=== PATIENT | female | born 1980 | race African-American/Black ===

== ENCOUNTER 2017-02-27 14:00 | Emergency (ER) | payer OTHER ==
[2017-02-27 17:33] LABS: URINE PH (Dip) POC 5.5 (5.0-8.5)
[2017-02-27 17:33] LABS: URINE BLOOD (Dip) POC Trace-lysed (NEGATIVE); URINE GLUCOSE (Dip) POC Negative (NEGATIVE); URINE KETONES (Dip) POC Negative (NEGATIVE); URINE LEUKOCYTE EST (Dip) POC Negative (NEGATIVE); URINE NITRITE (Dip) POC Negative (NEGATIVE); URINE TOTAL PROTEIN POC Negative (NEGATIVE)
== END 2017-02-27 18:30 | disposition home or self-care (01) ==
LOC: FTE 14:00
DX: O99.89 Other specified diseases and conditions complicating pregnancy, childbirth and the puerperium (principal); R05 Cough; Z3A.01 Less than 8 weeks gestation of pregnancy
CPT/HCPCS: 76801; 76817; 81003; 99284-25

== ENCOUNTER 2017-03-01 22:07 | Emergency (ER) | payer OTHER ==
[2017-03-02 00:46] LABS: URINE PH (Dip) POC 6.5 (5.0-8.5)
[2017-03-02 00:46] LABS: URINE BLOOD (Dip) POC Trace-intact (NEGATIVE); URINE GLUCOSE (Dip) POC Negative (NEGATIVE); URINE KETONES (Dip) POC Negative (NEGATIVE); URINE LEUKOCYTE EST (Dip) POC Negative (NEGATIVE); URINE NITRITE (Dip) POC Negative (NEGATIVE); URINE TOTAL PROTEIN POC Trace (NEGATIVE)
[2017-03-02] MEDS: ACETAMINOPHEN 325 MG TAB PO (00:48)
[2017-03-02 01:00] LABS: ADD MAN DIFF? NO
[2017-03-02 01:03] LABS: BASOPHILS % 0.4 % (0.0-2.0); EOSINOPHILS # 0.2 10^3/ul (0.0-0.5); EOSINOPHILS % 1.9 % (0.0-7.0); HEMATOCRIT 32.7 % (37.0-47.0); LYMPHOCYTES # 2.4 10^3/ul (0.8-2.9); LYMPHOCYTES % 23.8 % (15.0-51.0); MEAN CORPUSCULAR HEMOGLOBIN 30.9 pg (29.0-33.0); MEAN CORPUSCULAR HGB CONC 33.6 g/dl (32.0-37.0); MEAN CORPUSCULAR VOLUME 91.9 fl (82.0-101.0); MONOCYTE # 0.8 10^3/ul (0.3-0.9); MONOCYTES % 7.8 % (0.0-11.0); NEUTROPHIL # 6.7 10^3/ul (1.6-7.5); NEUTROPHILS % 65.7 % (39.0-77.0); PLATELET COUNT 259 10^3/UL (140-415); RED BLOOD COUNT 3.56 10^6/ul (4.20-5.40); RED CELL DISTRIBUTION WIDTH 12.4 % (11.5-14.5)
[2017-03-02 01:03] LABS: WHITE BLOOD COUNT 10.1 10^3/ul (4.8-10.8)
[2017-03-02 01:15] LABS: ADD UMIC NO; UR ASCORBIC ACID NEGATIVE (NEGATIVE); UR BILIRUBIN (Dip) NEGATIVE (NEGATIVE); UR BLOOD (Dip) NEGATIVE (NEGATIVE); UR CLARITY CLEAR (CLEAR); UR COLOR YELLOW (YELLOW); UR GLUCOSE (Dip) NEGATIVE (NEGATIVE); UR KETONES (Dip) NEGATIVE (NEGATIVE); UR LEUKOCYTE ESTERASE (Dip) NEGATIVE Leu/ul (NEGATIVE); UR NITRITE (Dip) NEGATIVE (NEGATIVE); UR TOTAL PROTEIN (Dip) NEGATIVE (NEGATIVE); UR UROBILINOGEN (Dip) 1+ mg/dL (NEGATIVE)
[2017-03-02 01:34] LABS: INR 0.83; PROTIME 11.5 Sec (11.9-14.9); PT RATIO 0.9
[2017-03-02 01:35] LABS: PARTIAL THROMBOPLASTIN TIME 27.3 Sec (25.0-35.0)
== END 2017-03-02 03:21 | disposition home or self-care (01) ==
LOC: FTE 22:07
DX: O20.9 Hemorrhage in early pregnancy, unspecified (principal); R10.2 Pelvic and perineal pain; Z3A.01 Less than 8 weeks gestation of pregnancy
CPT/HCPCS: 36415; 76801; 76817; 81003; 84702; 85025; 85610; 85730; 86900; 86901; 99284-25

== ENCOUNTER 2017-09-10 07:17 | Emergency (ER) | payer OTHER | END 2017-09-10 07:52 | disposition home or self-care (01) | LOC: FTE 07:17 | DX: M54.2 Cervicalgia (principal); F17.210 Nicotine dependence, cigarettes, uncomplicated | CPT/HCPCS: 99283; Z7502 ==

== ENCOUNTER 2018-03-24 13:46 | Emergency (ER) | payer OTHER | END 2018-03-24 16:41 | disposition home or self-care (01) | LOC: FTE 13:46 | DX: Z76.0 Encounter for issue of repeat prescription (principal) | CPT/HCPCS: 99281; Z7502 ==